=== PATIENT | male | born 1965 | race Caucasian/White ===

== ENCOUNTER 2017-02-15 01:10 | Emergency (ER) | payer SELFPAY ==
--- NOTE | ~2017-02-15 | CR72 ---
[facility] A Service of [facility] RADIOLOGY TEXT RESULTS PATIENT: SHEA LAROSE LOCATION: [facility] : 65 UNIT #: [id number] AGE: [address]: Gerardo Anaya MD SEX: M ORDER DR: [id number] [facility] [address] [place], [place] [address] [id number] E MR#: [id number] Acc #: [id number] NAME: SHEA LAROSE : 1965 SEX: M STUDY DATE/TIME: 02/15/2017 2:48 UNIT: [facility] ROOM: STUDY DESCRIPTION: CR Chest Single View Portable Attending Physician: Gerardo Anaya M.D. Ordering Physician: Carloz Valera D.O. Primary Care Physician: Primary Care Physician No MEDICAL IMAGING REPORT This report is preliminary unless electronic signature is present EXAM AP portable chest 02/15/2017. HISTORY 54-year-old male in the ED with headache and left side pain after reported heroin overdose tonight. TECHNIQUE AP portable chest x-ray. FINDINGS No active disease in the chest. Heart size and pulmonary vascularity are within normal limits. Shallow lung expansion with minimal bibasilar atelectasis. Lungs otherwise clear. No pleural effusion. IMPRESSION 1. No active disease. 2. Shallow lung expansion with minimal bibasilar pulmonary atelectasis. Dictated by... Jesús Murguia M.D. THIS IS AN ELECTRONICALLY VERIFIED REPORT Jesús Murguia M.D. at 02/15/2017 10:06 PM Nicole TD: 02/15/2017 13:20 JOB #: [id number] MEDICAL IMAGING REPORT Page 1 of 1 COPY
--- NOTE | ~2017-02-15 | CT71 ---
[facility] A Service of [facility] RADIOLOGY TEXT RESULTS PATIENT: SHEA LAROSE LOCATION: [facility] : 65 UNIT #: [id number] AGE: [address]: Gerardo Anaya MD SEX: M ORDER DR: [id number] [facility] [address] [place], [place] [address] [id number] E MR#: [id number] Acc #: [id number] NAME: SHEA LAROSE : 1965 SEX: M STUDY DATE/TIME: 02/15/2017 1:45 UNIT: [facility] ROOM: STUDY DESCRIPTION: CT Head Wo Contrast Attending Physician: Gerardo Anaya M.D. Ordering Physician: Carloz Valera D.O. Primary Care Physician: Primary Care Physician No MEDICAL IMAGING REPORT This report is preliminary unless electronic signature is present EXAM CT head, noncontrast, 02/15/2017 HISTORY 51-year-old male in the ED after a heroin overdose tonight. He complains of headache and left side abdomen pain. TECHNIQUE CT examination of the head without IV contrast. This CT examination was performed with one or more of the following radiation dose reduction techniques: automatic exposure control, adjustment of mA and/or kV according to patient size, and iterative reconstruction. FINDINGS The examination is negative. No evidence of intracranial hemorrhage, mass, mass effect, cerebral edema, hydrocephalus or additional abnormality. IMPRESSION Negative head CT examination. Dictated by... Jesús Murguia M.D. THIS IS AN ELECTRONICALLY VERIFIED REPORT Jesús Murguia M.D. at 02/15/2017 10:06 PM DIDI/eduar TD: 02/15/2017 13:16 JOB #: [id number] MEDICAL IMAGING REPORT Page 1 of 1 COPY
--- NOTE | ~2017-02-15 | CT4 ---
[facility] A Service of [facility] RADIOLOGY TEXT RESULTS PATIENT: SHEA LAROSE LOCATION: [facility] : 65 UNIT #: [id number] AGE: [address]: Gerardo Anaya MD SEX: M ORDER DR: [id number] [facility] [address] [place], [place] [address] [id number] E MR#: [id number] Acc #: [id number] NAME: SHEA LAROSE : 1965 SEX: M STUDY DATE/TIME: 02/15/2017 1:51 UNIT: [facility] ROOM: STUDY DESCRIPTION: CT Abd and Pelv Wo Cont Attending Physician: Gerardo Anaya M.D. Ordering Physician: Carloz Valera D.O. Primary Care Physician: Primary Care Physician No MEDICAL IMAGING REPORT This report is preliminary unless electronic signature is present EXAM CT abdomen and pelvis, noncontrast, 02/15/2017 HISTORY 51-year-old male in the ED after a reported heroin overdose tonight. He complains of left side abdomen pain and a headache. He reports a prior history of diverticulitis. TECHNIQUE CT examination of the abdomen and pelvis was performed without oral or IV contrast as requested by the ED physician. This CT exam was performed with one or more of the following radiation dose reduction techniques: automatic exposure control, adjustment of mA and/or kV according to patient size, and iterative reconstruction. FINDINGS Abdomen: Moderate diverticulosis throughout the sigmoid and descending colon. No CT evidence of acute diverticulitis at this time. Small bowel and colon are otherwise normal in caliber and appearance, as imaged. The appendix is normal. Nondistended stomach. Liver, pancreas, spleen and kidneys are normal in appearance without contrast. No bile duct or pancreatic duct dilatation. Normal-caliber abdominal aorta. Pelvis: Bladder, prostate and rectum are within normal limits. Limited lung base images show no active disease in the lower chest. IMPRESSION 1. No acute abnormality within the abdomen or pelvis. No change since 04/21/2016. 2. Moderate sigmoid and descending colonic diverticulosis with no [facility] A Service of [facility] RADIOLOGY TEXT RESULTS PATIENT: SHEA LAROSE [id number] [birth year] UNIT #: [id number] AGE: [address]: Gerardo Anaya MD SEX: M ORDER DR: evidence of acute diverticulitis. The appendix is normal. Dictated by... Jesús Murguia M.D. THIS IS AN ELECTRONICALLY VERIFIED REPORT Jesús Murguia M.D. at 02/15/2017 10:06 PM Nicole TD: 02/15/2017 13:13 JOB #: [id number] MEDICAL IMAGING REPORT Page 1 of 1 COPY
[~2017-02-15 01:10] MED LIST: ALBUTEROL17 GM INH; MEDROL DOSEPAK4 MG DOB; NEXIUM PO; PHENERGAN PO; PREVACID PO; ROBITUSSIN A-C-S1 ML PO; TRAMADOL HCL50 M1 PO; TYLOX 5/500 CAP1 CAP PO; ZITHROMAX PO
[2017-02-15 04:15] LABS: ACETAMINOPHEN <10 ug/mL; ALBUMIN SERUM 3.7 g/dL (3.5-5.0); ALKALINE PHOSPHATASE 74 U/L (32-92); ALT (SGPT) 27 U/L (10-40); AST (SGOT) 20 U/L (10-42); BILIRUBIN, DIRECT 0.1 mg/dL (0.0-0.2); BILIRUBIN,INDIRECT 0.3 mg/dL (0.0-0.9); BILIRUBIN,TOTAL 0.4 mg/dL (0.2-2.0); BLOOD UREA NITROGEN 18 mg/dL (9-23); CALCIUM SERUM 8.4 mg/dL (8.4-10.2); CARBON DIOXIDE 25 mmol/L (22-31); CHLORIDE 106 mmol/L (100-111); CREATININE SERUM 0.9 mg/dL (0.6-1.4); GLOM FILT RATE Estimated ABOVE60 mL/min (>60); GLUCOSE FASTING 86 mg/dL (70-110); LIPASE 22 U/L (22-51); POTASSIUM 4.1 mmol/L (3.5-5.1); PROTEIN TOTAL SERUM 6.9 g/dL (6.0-8.3); SALICYLATE <4.0 mg/dL; SODIUM 137 mmol/L (135-145)
[2017-02-15 04:16] LABS: URINE SOURCE CLEAN CATCH
[2017-02-15 04:19] LABS: URINE APPEARANCE CLEAR; URINE BILIRUBIN NEG (NEG); URINE BLOOD NEG (NEG); URINE COLOR YELLOW; URINE GLUCOSE >1000 MG/DL (NEG); URINE KETONE NEG (NEG); URINE LEUKOCYTE ESTERASE NEG (NEG); URINE NITRATE NEG (NEG); URINE PROTEIN NEG (NEG); URINE SPECIFIC GRAVITY 1.021 (1.003-1.035)
[2017-02-15 04:20] LABS: AMPHETAMINE POS (NEG); BARBITURATES NEG (NEG); BENZODIAZEPINES POS (NEG); COCAINE NEG (NEG); MARIJUANA NEG (NEG); OPIATES POS (NEG); TRICYCLIC ANTIDEPRESSANTS NEG (NEG); U METHADONE NEG (NEG)
[2017-02-15 04:21] LABS: CULTURE INDICATED? NO
== END 2017-02-15 05:50 | disposition home or self-care (01) ==
LOC: CED 01:10
PROVIDERS: Emergency Medicine
DX: F11.10 Opioid abuse, uncomplicated (principal); F13.10 Sedative, hypnotic or anxiolytic abuse, uncomplicated; F15.10 Other stimulant abuse, uncomplicated; F17.200 Nicotine dependence, unspecified, uncomplicated
CPT/HCPCS: 36415; 70450; 71010; 74176; 80048; 80076; 80307; 81003; 83690; 96360; 99284; G0480